=== PATIENT | male | born 1975 | race African-American/Black ===

== ENCOUNTER 2017-06-10 20:08 | Emergency (ER) | payer BC ==
[~2017-06-10] VITALS: Ht 180.3 cm; Wt 108.0 kg
[~2017-06-10 20:08] MED LIST: ASPIRIN81 M2 PO; ATENOLOL50 MG PO; SIMVASTATIN20 MG PO; ZOFRAN4 MG PO
[2017-06-10 20:43] LABS: ADD MIUA? NO; BILIRUBIN NEGATIVE; BLOOD NEGATIVE; COLOR YELLOW ((YELLOW)); GLUCOSE (STRIP) NEGATIVE; KETONES NEGATIVE; LEUKOCYTES NEGATIVE; NITRITE NEGATIVE; PROTEIN (STRIP) NEGATIVE; SPECIFIC GRAVITY 1.021 (1.000-1.030); UCUL ADDED? NO; UROBILINOGEN 0.2 MG/DL (0.2-1.0)
[2017-06-10 20:45] LABS: HEMATOCRIT 44.4 % (38.0-50.0); MCH 29.3 PG (29.0-34.0); MCV 86.2 FL (86-99); MEAN PLAT.VOLUME 9.6 uM^3 (9.0-12.4); PLATELET COUNT 312 K/uL (156-360); RBC DIS.WIDTH-CV 12.3 % (11.8-14.6); RED BLOOD COUNT 5.15 M/uL (4.00-5.50); WHITE BLOOD COUNT 5.7 K/uL (4.1-10.2)
[2017-06-10 20:53] LABS: CHLORIDE 105 mEq/L (99-109); SODIUM 138 mEq/L (136-147)
[2017-06-10 20:55] LABS: GLUCOSE 112 mg/dL (70-99)
[2017-06-10 20:57] LABS: ANION GAP 6 MEQ/L (2-14); TOTAL BILIRUBIN 0.6 mg/dL (0.0-1.0)
[2017-06-10 20:59] LABS: ALKALINE PHOSPHATASE 60 IU/L (3-129); GFR ESTIMATE (CALCULATED) > 59 mL/min/
[2017-06-10 21:00] LABS: UREA NITROGEN (BUN) 15 mg/dL (9-23)
[2017-06-10 23:45] VITALS: BP 128/90
== END 2017-06-10 23:59 | disposition home or self-care (01) ==
LOC: RME 20:08 → EME 20:08 → RME 23:59
DX: R10.30 Lower abdominal pain, unspecified (principal); E78.5 Hyperlipidemia, unspecified; I10 Essential (primary) hypertension; Z87.891 Personal history of nicotine dependence; Z79.82 Long term (current) use of aspirin
CPT/HCPCS: 74022; 80053; 81003; 85027; 99281; 99284

== ENCOUNTER 2017-06-12 17:54 | Emergency (ER) | payer BC ==
[~2017-06-12] VITALS: Ht 180.3 cm; Wt 109.9 kg
[2017-06-12 18:33] LABS: ADD MIUA? YES; BILIRUBIN NEGATIVE; BLOOD NEGATIVE; COLOR YELLOW ((YELLOW)); GLUCOSE (STRIP) NEGATIVE; KETONES NEGATIVE; LEUKOCYTES NEGATIVE; NITRITE NEGATIVE; PROTEIN (STRIP) NEGATIVE; SPECIFIC GRAVITY 1.024 (1.000-1.030)
[2017-06-12 18:45] LABS: BACTERIA NONE SEEN /HPF; EPITHELIAL CELLS NONE SEEN /HPF; MUCUS TRACE /LPF; RED BLOOD CELLS 0-5 /HPF (0-5); UCUL ADDED? NO; WHITE BLOOD CELLS NONE SEEN /HPF (0-5)
[2017-06-12 19:06] LABS: HEMATOCRIT 43.9 % (38.0-50.0); MCH 29.5 PG (29.0-34.0); MCHC 34.2 G/DL (30.0-36.0); MCV 86.2 FL (86-99); MEAN PLAT.VOLUME 9.9 uM^3 (9.0-12.4); PLATELET COUNT 312 K/uL (156-360); RBC DIS.WIDTH-CV 12.5 % (11.8-14.6); RBC DIS.WIDTH-SD 39.5 % (39-53); RED BLOOD COUNT 5.09 M/uL (4.00-5.50); WHITE BLOOD COUNT 5.6 K/uL (4.1-10.2)
[2017-06-12 19:19] LABS: CHLORIDE 107 mEq/L (99-109); SODIUM 141 mEq/L (136-147)
[2017-06-12 19:21] LABS: GLUCOSE 110 mg/dL (70-99)
[2017-06-12 19:22] LABS: ANION GAP 10 MEQ/L (2-14)
[2017-06-12 19:24] LABS: ALKALINE PHOSPHATASE 58 IU/L (3-129)
[2017-06-12 19:25] LABS: GFR ESTIMATE (CALCULATED) > 59 mL/min/
[2017-06-12 19:26] LABS: UREA NITROGEN (BUN) 16 mg/dL (9-23)
[2017-06-12 19:28] LABS: LIPASE 17 U/L (1.0-51.0)
[2017-06-12 20:27] LABS: TOTAL BILIRUBIN 0.4 mg/dL (0.0-1.0)
[2017-06-12] MEDS ORDERED: BENTYL10 MG PO (21:45)
[2017-06-12] MEDS ORDERED: COLACE100 MG PO (21:45)
[2017-06-12 22:41] VITALS: BP 138/98
== END 2017-06-12 22:43 | disposition home or self-care (01) ==
LOC: EME 17:54
DX: R10.32 Left lower quadrant pain (principal); K59.00 Constipation, unspecified; E78.5 Hyperlipidemia, unspecified; I10 Essential (primary) hypertension; Z87.891 Personal history of nicotine dependence
CPT/HCPCS: 74176; 80053; 81003; 83690; 85027; 99281; 99284